=== PATIENT | male | born 1965 | race Caucasian/White ===

== ENCOUNTER 2018-12-19 08:49 | Emergency (ER) | payer OTHER ==
[2018-12-19 08:57] VITALS: BP 122/82; PULSE 88; TEMP 97.5; BMI 28.7
[2018-12-19] MEDS ORDERED: IBUPROFEN 400 MG TABLET (FP) PO ONE ×2 (09:29→09:43)
--- NOTE | 2018-12-19 10:29 | PDOC ---
History of Present Illness - General Chief Complaint: Pain, Acute Stated Complaint: RT SHOULDER PAIN Time Seen by Provider: 12/19/18 09:09 History Source: Patient Exam Limitations: No Limitations Past History - Past Medical History Allergies/Adverse Reactions: Allergies Allergy/AdvReac Type Severity Reaction Status Date / Time No Known Allergies Allergy Verified 12/19/18 08:55 Home Medications: Ambulatory Orders Emtricitabine/Tenofovir [Truvada -] 1 tab PO DAILY 10/29/13 Lopinavir/Ritonavir [Kaletra 200-50 mg Tablet] 1 each PO DAILY 10/29/13 COPD: No - Immunization History Immunization Up to Date: Yes - Suicide/Smoking/Psychosocial Hx Smoking History: Never smoked Hx Alcohol Use: No Drug/Substance Use Hx: No Substance Use Type: None *Physical Exam - Vital Signs Last Vital Signs Temp Pulse Resp BP Pulse Ox 97.5 F L 88 17 122/82 98 12/19/18 08:55 12/19/18 08:55 12/19/18 08:55 12/19/18 08:55 12/19/18 08:55 - Physical Exam General Appearance: No: Apparent Distress Respiratory/Chest: positive: Lungs Clear, Normal Breath Sounds. negative: Respiratory Distress Cardiovascular: positive: Regular Rhythm, Regular Rate, S1, S2. negative: Murmur Musculoskeletal: positive: Decreased Range of Motion (of R shoulder), Other ( RUE neurovascularly intact, +mild TTP along R anterior shoulder). negative: Muscle Spasm Extremity: positive: Normal Capillary Refill Integumentary: positive: Normal Color Neurologic: positive: Alert, Normal Mood/Affect ED Treatment Course - RADIOLOGY Radiology Studies Ordered: Category Date Time Status SHOULDER-RIGHT [RAD] Stat Radiology 12/19/18 09:29 Completed - Medications Given in the ED: ED Medications Discontinued Medications Generic Name Dose Route Start Last Admin Trade Name Freq PRN Reason Stop Dose Admin Ibuprofen 800 mg 12/19/18 09:29 12/19/18 09:46 Motrin - PO 12/19/18 09:30 800 mg ONCE ONE Administration Medical Decision Making - Medical Decision Making 53 y/o M with hx of HIV presents with R shoulder pain for around 5 months, worsening the past 2 weeks. Denies trauma to R shoulder. Saw his PCP who told him it was likely arthritis and was prescribed Meloxicam, which he states does not help much. Denies fever, neck pain, numbness/tingling/weakness of extremities, sob, cp. R shoulder xray - shows high riding shoulder and calcific tendonitis Raises concern for rotator cuff injury Will refer to ortho 12/19/18 10:25 *DC/Admit/Observation/Transfer Diagnosis at time of Disposition: Chronic right shoulder pain - Discharge Dispostion Disposition: HOME Condition at time of disposition: Stable Decision to Admit order: No - Referrals Referrals: Jitendra Sales MD [Primary Care Provider] - 2 Days Chucho Coronado DO [Staff Physician] - 2 Days - Patient Instructions Printed Discharge Instructions: DI for Rotator Cuff Injury, DI for Calcific Tendonitis of the Shoulder Additional Instructions: Thank you for choosing [facility]. It was a pleasure taking care of you. Your xray raises concern for probable rotator cuff injury You may take Motrin 600 mg every 6 hours by mouth as needed for mild to moderate pain. Take Motrin with food. Recommend physical therapy You were also referred to orthopedic doctor for evaluation Return to the Emergency Department if your symptoms worsen or persist or have other concerning symptoms. - Post Discharge Activity
== END 2018-12-19 10:46 | disposition home or self-care (01) ==
LOC: JERFT 08:49
DX: M25.511 Pain in right shoulder (principal); Z21 Asymptomatic human immunodeficiency virus [HIV] infection status; G89.29 Other chronic pain
CPT/HCPCS: 73030-TC-RT-FY; 99281-25

== ENCOUNTER 2018-12-20 14:35 | Emergency (ER) | payer OTHER ==
[2018-12-20 15:22] VITALS: BP 113/85; PULSE 77; TEMP 98.3; BMI 28.3
[2018-12-20] MEDS ORDERED: KETOROLAC TROMETHAMINE 60 MG/2 ML VIAL IM ONE (16:07)
[2018-12-20] MEDS ORDERED: KETOROLAC TROMETHAMINE 60 MG/2 ML VIAL ONE (16:08)
--- NOTE | 2018-12-20 16:17 | PDOC ---
History of Present Illness - General Chief Complaint: Pain, Acute Stated Complaint: RT SHOULDER PAIN Time Seen by Provider: 12/20/18 15:40 History Source: Patient Exam Limitations: No Limitations Past History - Past Medical History Allergies/Adverse Reactions: Allergies Allergy/AdvReac Type Severity Reaction Status Date / Time No Known Allergies Allergy Verified 12/19/18 08:55 Home Medications: Ambulatory Orders Emtricitabine/Tenofovir [Truvada -] 1 tab PO DAILY 10/29/13 Lopinavir/Ritonavir [Kaletra 200-50 mg Tablet] 1 each PO DAILY 10/29/13 Methylprednisolone [Medrol Dose Abdullahi] 4 mg PO ASDIR #21 tablet 12/20/18 COPD: No - Immunization History Immunization Up to Date: Yes - Suicide/Smoking/Psychosocial Hx Smoking History: Unknown if ever smoked Have you smoked in the past 12 months: No Information on smoking cessation initiated: No Hx Alcohol Use: No Drug/Substance Use Hx: No Substance Use Type: None *Physical Exam - Vital Signs Last Vital Signs Temp Pulse Resp BP Pulse Ox 98.3 F 77 18 113/85 98 12/20/18 15:17 12/20/18 15:17 12/20/18 15:17 12/20/18 15:17 12/20/18 15:17 - Physical Exam General Appearance: No: Apparent Distress Respiratory/Chest: positive: Lungs Clear, Normal Breath Sounds. negative: Respiratory Distress Cardiovascular: positive: Regular Rhythm, Regular Rate, S1, S2. negative: Murmur Musculoskeletal: positive: Decreased Range of Motion (of R shoulder). negative : Muscle Spasm Extremity: positive: Normal Capillary Refill Integumentary: positive: Normal Color Neurologic: positive: Alert, Normal Mood/Affect ED Treatment Course - Medications Given in the ED: ED Medications Discontinued Medications Generic Name Dose Route Start Last Admin Trade Name Freq PRN Reason Stop Dose Admin Ketorolac Tromethamine 60 mg 12/20/18 16:07 12/20/18 16:11 Toradol Injection - IM 12/20/18 16:08 60 mg ONCE ONE Administration Medical Decision Making - Medical Decision Making 53 y/o M with hx of HIV presents with chronic R shoulder pain. Patient was just seen yesterday for similar complaint and had xray done raising concern for rotator cuff injury. Patient states neither the Meloxicam or Motrin are helping with pain. Had called the orthopedic and appointment is 12/24. However, states he needs something to control his pain. Denies other complaints Will give of Toradol for now and start on Medrol dosepak until can see the orthopedic 12/20/18 16:14 *DC/Admit/Observation/Transfer Diagnosis at time of Disposition: Injury of right rotator cuff Qualifiers: Encounter type: initial encounter Qualified Code(s): S46.001A - Unspecified injury of muscle(s) and tendon(s) of the rotator cuff of right shoulder, initial encounter - Discharge Dispostion Disposition: HOME Condition at time of disposition: Stable Decision to Admit order: No - Prescriptions Prescriptions: Methylprednisolone [Medrol Dose Abdullahi] 4 mg PO ASDIR #21 tablet - Referrals Referrals: Chucho Coronado DO [Staff Physician] - 12/24/18 - Patient Instructions Printed Discharge Instructions: DI for Rotator Cuff Injury Additional Instructions: Thank you for choosing [facility]. It was a pleasure taking care of you. Take Medrol dosepak as written in instructions Continue follow-up with orthopedic as scheduled Also recommend physical therapy Return to the Emergency Department if your symptoms worsen or persist or have other concerning symptoms. - Post Discharge Activity
== END 2018-12-20 16:34 | disposition home or self-care (01) ==
LOC: JERFT 14:35
PROC: 3E0233Z Introduction of Anti-inflammatory into Muscle, Percutaneous Approach (ICD-10-PCS; principal; 2018-12-20)
DX: G89.29 Other chronic pain (principal); S46.001A Unspecified injury of muscle(s) and tendon(s) of the rotator cuff of right shoulder, initial encounter; Z21 Asymptomatic human immunodeficiency virus [HIV] infection status
CPT/HCPCS: 99281-25

== ENCOUNTER 2021-04-29 04:36 | Day surgery (SDC) | payer OTHER ==
[2021-04-28 07:35] VITALS: BMI 26.9
[2021-04-29 09:39] VITALS: TEMP 98
[2021-04-29 11:17] VITALS: BP 126/78; PULSE 74
== END 2021-04-29 11:11 | disposition home or self-care (01) ==
LOC: JASU-ENDO 04:36
PROVIDERS: ATTEND Internal Medicine Gastroenterology
PROC: 0DB68ZX Excision of Stomach, Via Natural or Artificial Opening Endoscopic, Diagnostic (ICD-10-PCS; 2021-04-29)
PROC: 0DB58ZX Excision of Esophagus, Via Natural or Artificial Opening Endoscopic, Diagnostic (ICD-10-PCS; principal; 2021-04-29 09:00)
DX: K21.9 Gastro-esophageal reflux disease without esophagitis (principal); K29.50 Unspecified chronic gastritis without bleeding
CPT/HCPCS: 88305-TC; 88342-TC

== ENCOUNTER 2021-05-06 04:47 | Day surgery (SDC) | payer OTHER ==
[2021-05-04 15:21] VITALS: BMI 26.9
[2021-05-06] MEDS ORDERED: KETAMINE HCL 500 MG/10 ML VIAL ONE (09:32)
[2021-05-06] MEDS ORDERED: ALBUTEROL SO4 HFA INHALER IH ONE (09:32)
[2021-05-06 10:06] VITALS: TEMP 97.5
[2021-05-06 10:47] VITALS: BP 106/66; PULSE 69
== END 2021-05-06 10:53 | disposition home or self-care (01) ==
LOC: JASU-ENDO 04:47
PROVIDERS: ATTEND Internal Medicine Gastroenterology
PROC: 0DJD8ZZ Inspection of Lower Intestinal Tract, Via Natural or Artificial Opening Endoscopic (ICD-10-PCS; principal; 2021-05-06 09:54)
DX: Z12.11 Encounter for screening for malignant neoplasm of colon (principal); Z53.8 Procedure and treatment not carried out for other reasons

== ENCOUNTER 2022-05-19 18:57 | Emergency (ER) | payer OTHER ==
[2022-05-19 19:10] VITALS: BP 123/77; PULSE 95; RESP 20; TEMP 97.7; BMI 25.8
[2022-05-19] MEDS ORDERED: MAG HYDROX/AL HYDROX/SIMETH 30 ML UNIT-DOSE CUP PO ONE (20:34)
[2022-05-19] MEDS ORDERED: ACETAMINOPHEN 1000 MG/100 ML BAG IVPB ONE (20:34)
[2022-05-19] MEDS ORDERED: FAMOTIDINE 20 MG/50 ML IVPB 20 MG/50 ML MG IVPB ONE ×2 (20:34→20:59)
[2022-05-19] MEDS ORDERED: MAG HYDROX/AL HYDROX/SIMETH 30 ML UNIT-DOSE CUP ONE (20:59)
[2022-05-19] MEDS ORDERED: ACETAMINOPHEN INJECTION 100 ML IVPB ONE ×2 (20:59)
[2022-05-19 21:14] LABS: BASO % 0.9 % (0-2.0); EOS % 0.5 % (0-4.5); HEMATOCRIT 44.1 % (35.4-49); HEMOGLOBIN 15.4 GM/dL (11.7-16.9); LYMPH % 27.8 % (8-40); MCH 31.9 pg (25.7-33.7); MCHC 34.8 g/dl (32.0-35.9); MEAN CELL VOLUME 91.7 fl (80-96); MEAN PLT VOLUME 7.7 fl (7.5-11.1); MONO % 9.7 % (3.8-10.2); NEUT % 61.1 % (42.8-82.8); PLATELET COUNT 308 10^3/uL (134-434); RBC 4.81 M/mm3 (4.00-5.60); RDW 14.2 % (11.9-15.9); WHITE BLOOD COUNT 8.3 K/mm3 (4.0-10.0)
[2022-05-19 21:30] LABS: CALCIUM 9.1 mg/dL (8.5-10.1)
[2022-05-19 21:31] LABS: ALBUMIN 3.8 g/dl (3.4-5.0); BLOOD UREA NITROGEN 14.8 mg/dL (7-18)
[2022-05-19 21:34] LABS: CREATININE 1.3 mg/dL (0.55-1.3)
[2022-05-19] MEDS ORDERED: LACTATED RINGERS SOLUTION 1000 ML INFUS.BAG IV ONE (21:34)
[2022-05-19 21:36] LABS: BILIRUBIN,TOTAL 0.4 mg/dL (0.2-1); TOT PROT 7.3 g/dl (6.4-8.2)
== END 2022-05-20 02:25 | disposition home or self-care (01) ==
LOC: JER 18:57
PROC: 3E033NZ Introduction of Analgesics, Hypnotics, Sedatives into Peripheral Vein, Percutaneous Approach (ICD-10-PCS; principal; 2022-05-19)
PROC: 3E033GC Introduction of Other Therapeutic Substance into Peripheral Vein, Percutaneous Approach (ICD-10-PCS; 2022-05-19)
DX: R10.9 Unspecified abdominal pain (principal)
CPT/HCPCS: 36415; 74177-TC; 76705-TC; 80053; 83690; 85025; 93005; 93010; 99285-25